=== PATIENT | male | born 1970 | race African-American/Black ===

== ENCOUNTER 2018-05-17 10:08 | Emergency (ER) | payer OTHER ==
[~2018-05-17] VITALS: Ht 165.1 cm; Wt 117.0 kg
[2018-05-17 11:35] LABS: BASOPHILS % 1.2 % (0.0-2.0); EOSINOPHILS % 0.5 % (0.0-5.0); HEMATOCRIT. 35.5 % (42.0-52.0); HEMOGLOBIN. 11.5 g/dL (14.0-18.0); LYMPHOCYTES % 20.3 % (20.0-50.0); MEAN CORPUSCULAR HEMOGLOBIN 27.5 pg (28.0-32.0); MONOCYTES % 8.4 % (2.0-8.0); NEUTROPHILS % 69.6 % (40.0-76.0); RED BLOOD CELL COUNT 4.17 mill/uL (4.7-6.1); RED CELL DISTRIBUTION WIDTH 15.8 % (11.6-14.6)
[2018-05-17 11:39] LABS: CHLORIDE 105 mEq/L (98-107)
[2018-05-17 12:13] LABS: PLATELET 319 x1000/uL (130-400)
[2018-05-17 13:43] VITALS: BP 182/107
== END 2018-05-17 13:55 | disposition home or self-care (01) ==
LOC: ER 10:08
DX: E11.649 Type 2 diabetes mellitus with hypoglycemia without coma (principal); E78.00 Pure hypercholesterolemia, unspecified; Z90.49 Acquired absence of other specified parts of digestive tract
CPT/HCPCS: 36415; 80053; 82962; 85025; 99284; Z7610